=== PATIENT | male | born 1995 | race Caucasian/White ===

== ENCOUNTER 2017-03-04 18:50 | Emergency (ER) | payer OTHER ==
[~2017-03-04] VITALS: Ht 180.3 cm; Wt 77.3 kg
[2017-03-04 18:53] VITALS: BP 139/81; PULSE 67; RESP 16; O2SAT 100
--- NOTE | 2017-03-04 19:58 | ED.REPORT ---
HPI-Dyspnea / Wheezing Date of Service March 04, 2017 ED Provider: Maulik Fierro MD Patient is a healthy, non-smoking, 21 year old male who presents to the ED after being referred by urgent care for SOB onset 1500 today while at work. He originally thought his SOB was from running but it has not resolved. Associated symptoms include mild chest pain. He denies fever, diaphoresis, cough, bloody sputum, lightheadedness, or any other symptoms. His EKG and Chest X-ray at were normal. He denies a hx of asthma. Nursing Notes Stated Complaint: SOB Chief Complaint: Respiratory Complaints Nursing Notes Reviewed: Yes Allergies: Coded Allergies: oxycodone (Verified Adverse Reaction, Mild, Vomiting, 03/04/17) No Active Prescriptions or Reported Meds General Time Seen by MD: 19:40 Chief Complaint Shortness of breath Hx Obtained From: Patient Arrived By: Walk-in Sudden in Onset?: Yes Onset Occurred: 5 - 8 hours ago Symptom Duration: Since onset Similar Sx Previous: No Risk Factors CAD Risk Stratification No Diabetes mellitus, No Hyperlipidemia, No Hypertension, No Smoking Risk factors reviewed PE Risk Stratification No Coagulation Disorder, No Estrogen Medicine / BCP's, No , No Previous DVT, No Previous PE, No Surgery Last 60 Days Risk factors reviewed PERC Rule All PERC criteria "No" Well's Criteria for PE Well's PE Score: 0-2 pts (low risk 3.6%) Well's Criteria for DVT Well's DVT Score: 0 pts (low risk 5%) Past Medical History Past Medical History Healthy Past Surgical History Foot fx wrist fx Smoking History Unknown if Ever Smoker Social History Alcohol Use: Denies alcohol use Other Social History: Good social support, Local resident Ambulatory Status Independent Review of Systems Constitutional: Denies: Fever Respiratory: Reports: Shortness of breath, Denies: Non-productive cough, Prod cough, bloody Cardiovascular: Reports: Chest pain Skin: Denies Diaphoresis Complete sys rev & neg: except as marked. Neurologic: Denies: Lightheaded Physical Exam Initial Vital Signs Vital Signs (First) Date Time Temp Pulse Resp B/P Pulse Ox O2 Delivery O2 Flow Rate FiO2 03/04/17 18:53 36.7 67 16 139/81 100 Room Air Initial VS: Reviewed Head / Eyes: Atraumatic, Normocephalic Abdomen / GI: Soft, Non-tender Skin: Warm, Dry Neurologic: Alert, Oriented, Nonfocal Psychiatric: Mood/affect normal, Behavior normal, Normal thought content General/Constitutional: Awake, Alert, Well developed Neck: Supple, Full range of motion, No JVD Respiratory / Chest: Atraumatic, Breath sounds NL, Breath sounds = bilat, No respiratory distress arrested breathing with inspiration Cardiovascular: Heart rate NL, Regular rhythm, Heart sounds NL, No gallop, No murmurs, No rubs ENT: Airway patent, Pharynx NL Interpretation & Diagnostics Lab Results Interpretation Result Diagram: 03/04/17194203/04/171942 Test 03/04/17 19:43 White Blood Count 5.2th/mm3 (3.8-10.1) Red Blood Count 5.27mil/mm3 (4.40-5.80) Hemoglobin 15.8g/dL (13.8-17.2) Hematocrit 44.3% (41.0-50.0) Mean Corpuscular Volume 84.1fL (81-100) Mean Corpuscular Hemoglobin 30.0pg (27.0-35.0) Mean Corpuscular Hemoglobin Concent 35.7% (32.0-37.0) Red Cell Distribution Width 12.3% (12.3-15.4) Platelet Count 195bil/L (150-400) Neutrophils (%) (Auto) 54.4% (40-74) Lymphocytes (%) (Auto) 34.4% (14-46) Monocytes (%) (Auto) 10.2% (4-12) Eosinophils (%) (Auto) 0.4% (0-5) Basophils (%) (Auto) 0.4% (0-3) Hold Purple Top Tube Received (Received) Hold Blue Top Tube Received (Received) Sodium Level 138mEq/L (134-144) Potassium Level 3.9mEq/L (3.5-5.2) Chloride Level 99mEq/L (97-108) Carbon Dioxide Level 24mmol/L (18-29) Blood Urea Nitrogen 16mg/dL (6-20) Creatinine 0.84mg/dL (0.76-1.27) Estimat Glomerular Filtration Rate 123mL/min (>59) Glucose Level 103mg/dL (60-99) Calcium Level 9.8mg/dL (8.5-10.1) Total Bilirubin 1.0mg/dL (0.0-1.2) Aspartate Amino Transf (AST/SGOT) 23U/L (0-50) Alanine Aminotransferase (ALT/SGPT) 14U/L (0-44) Alkaline Phosphatase 51U/L (25-150) Total Protein 7.9g/dL (6.4-8.4) Albumin 4.9g/dL (3.4-5.0) Hold Red Top Tube Received (Received) Hold O'Brien Top Tube Received (Received) Hold Phillips Top Tube Received (Received) Lab Results Interpretation: Chest xray from : negative ECG Interpretation ECG Interpretation: Sinus rate 67 Time: 20:39 Interpreted by: ED physician Re-Eval/Medical Decision Re-Evaluation/Progress : Time of Eval: 21:13 Re-Evaluation/Progress Note: Rechecked patient. He has improved. Discussed plan for discharge. Patient understands and agrees with plan. All questions addressed at this time. Counseled Regarding: Diagnosis, Lab results, Need for follow-up, When/why to return to ED Discharge & Departure Impression: Primary Impression: Acute dyspnea Additional Impression: Globus sensation Disposition: Home Discharge Condition All VS Reviewed: Yes Condition: Improved Additional Instructions: No dangerous cause for your symptoms of breathlessness have been discovered tonight. I recommend follow up with Dr. Isbell. Panic attack is among the possibilities causing the symptoms you experienced today. If you feel normal, I think it is safe for you to go to work. Referrals: Chau Isbell MD (PCP) Scribe Attestation Portions of this note were transcribed by Wing Allred. I, Dr. Fierro personally performed the history, physical exam and medical decision-making; I reviewed and confirmed the accuracy of the information in the transcribed note. Signed by: Wing Allred 03/04/17, 2121 copies to: Chau Isbell MD, Kirk H MD March 04, 2017 19:58 WING ALLRED March 04, 2017 19:59
[2017-03-04 20:42] LABS: BASOPHILS % (AUTO) 0.4 % (0-3); EOSINOPHILS % (AUTO) 0.4 % (0-5); MONOCYTES % (AUTO) 10.2 % (4-12); Mean Corpuscular Volume 84.1 fL (81-100); NEUTROPHILS % (AUTO) 54.4 % (40-74); Platelet Count 195 bil/L (150-400)
[2017-03-04] MEDS ORDERED: LORazepam 1 mg Tablet PO ONE (20:45)
[2017-03-04 21:03] VITALS: BP 126/63; PULSE 74; RESP 16; O2SAT 99
[2017-03-04 21:35] VITALS: BP 126/63; PULSE 74; RESP 16; O2SAT 99
== END 2017-03-04 21:36 | disposition home or self-care (01) ==
LOC: SED 18:50
DX: R06.00 Dyspnea, unspecified (principal); R09.89 Other specified symptoms and signs involving the circulatory and respiratory systems